=== PATIENT | male | born 1945 | race Caucasian/White ===

== ENCOUNTER 2017-04-14 03:28 | Emergency (ER) | payer OTHER ==
[~2017-04-14] VITALS: Ht 172.7 cm; Wt 63.5 kg
--- NOTE | ~2017-04-14 | EKG ---
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 : 1945 Requested By: Bobby Yeh Order Number: [id number] MD: Primo Rose Measurements Intervals Steward Rate: 71 P: -3 HI: 189 QRS: -19 QRSD: 98 T: 164 QT: 420 QTc: 457 Interpretive Statements Sinus rhythm Borderline left axis deviation Anteroseptal infarct, old Nonspecific repol abnormality, lateral leads Compared to ECG 04/29/2013 15:09:07 Early repolarization now present T-wave abnormality no longer present Possible ischemia no longer present Myocardial infarct finding still present Electronically Signed On 04-14-2017 9:25:50 E COMMERCE DIRECTOR by Primo Rose [email or web address] <ELECTRONICALLY SIGNED> By: Primo Rose MD 04/14/17 0925 0418 0418 Primo Rose MD /EPI
[~2017-04-14 03:28] MED LIST: ASPIRIN EC81 M1 PO; ATRIPLA TABLET1 EACH PO; B-121000 MCG PO; PERCOCET 7.5-31 EACH PO; PRAVACHOL80 MG PO; PYRIDOXINE HCL100 MG PO; TIMOLOL MA0.5 %/5 M2 OPHTHALMIC; VITAMIN E400 UNIT PO; VITAMINC500 PO; XALATAN2.5 ML OPHTHALMIC
[2017-04-14 03:59] LABS: CALCIUM 8.5 mg/dL (8.5-10.1); CREATININE 2.1 mg/dL (0.7-1.3); POTASSIUM 3.8 mmol/L (3.5-5.1)
[2017-04-14 04:00] LABS: MANUAL DIFF NO
[2017-04-14 04:01] LABS: ABSOLUTE NEUTROPHILS 3.6 thou/uL (1.4-8.2); BASOPHILS 0.3 % (0.0-2.0); EOSINOPHILS 2.1 % (0.0-3.0); HEMATOCRIT 24.3 % (42.0-52.0); HEMOGLOBIN 8.3 gm/dL (14.0-18.0); LYMPHOCYTES 26.8 % (24.0-44.0); MCHC 34.2 % (28.0-37.0); MCV 90.5 fL (80.0-100.0); MONOCYTES 8.7 % (1.0-8.0); PLATELET COUNT 171 thou/uL (150-400); POLYS 62.1 % (36.0-66.0); RBC 2.69 mil/uL (4.50-6.00); RDW 14.6 % (10.5-14.5); WBC 5.8 thou/uL (4.0-11.0)
[2017-04-14] MEDS ORDERED: TUMS PO (04:04)
[2017-04-14] MEDS ORDERED: VOLTAREN GEL 1100 G2 (04:06)
[2017-04-14] MEDS ORDERED: COSOPT OCUMETER10 M1 OP (04:07)
[2017-04-14] MEDS ORDERED: FLOMAX0.4 MG PO (04:08)
[2017-04-14] MEDS ORDERED: DIFLUCAN200 MG PO (04:09)
[2017-04-14] MEDS ORDERED: FOLIC ACID1 MG PO (04:10)
[2017-04-14] MEDS ORDERED: LAMIVUDINE PO (04:12)
[2017-04-14] MEDS ORDERED: LIDODERM1 EACH (04:16)
[2017-04-14] MEDS ORDERED: MELATONIN3 MG PO (04:16)
[2017-04-14] MEDS ORDERED: SEROQUEL 25 MG25 M1 PO (04:17)
[2017-04-14] MEDS ORDERED: TIVICAY50 MG PO (04:18)
[2017-04-14] MEDS ORDERED: WELLBUTRIN SR100 MG PO (04:19)
[2017-04-14] MEDS ORDERED: VITAMIN D1000 UNI1 PO (04:19)
[2017-04-14] MEDS ORDERED: ZIDOVUDINE300 MG PO (04:21)
[2017-04-14 04:26] LABS: APTT 28.8 Seconds (24.5-32.8); PROTIME 10.6 Seconds (9.3-11.4)
[2017-04-14 08:34] VITALS: BP 93/55
== END 2017-04-14 09:01 ==
LOC: ER 03:28
PROVIDERS: Emergency Medicine
DX: R06.02 Shortness of breath (principal)

== ENCOUNTER 2017-04-29 18:52 | Inpatient (IN) | payer OTHER ==
[~2017-04-29] VITALS: Ht 182.9 cm; Wt 65.7 kg
[~2017-04-29 18:52] MED LIST changes: +COSOPT OCUMETER10 M1 OP; +DIFLUCAN200 MG PO; +FLOMAX0.4 MG PO; +FOLIC ACID1 MG PO; +LAMIVUDINE PO; +LIDODERM1 EACH; +MELATONIN3 MG PO; +SEROQUEL 25 MG25 M1 PO; +TIVICAY50 MG PO; +TUMS PO; +VITAMIN D1000 UNI1 PO; +VOLTAREN GEL 1100 G2; +WELLBUTRIN SR100 MG PO; +ZIDOVUDINE300 MG PO
[2017-04-29 20:04] VITALS: BP 90/56
[2017-04-29 22:40] VITALS: BP 90/51; BP 99/65
[2017-04-30 01:57] VITALS: BP 96/62
[2017-04-30 04:00] VITALS: BP 96/62; BP 99/63
[2017-04-30 07:24] LABS: HEMATOCRIT 24.4 % (42.0-52.0); HEMOGLOBIN 8.5 gm/dL (14.0-18.0); MCHC 34.9 g/dL (28.0-37.0); MCV 91.5 fL (80.0-100.0); RBC 2.67 mil/uL (4.50-6.00); RDW 14.6 % (10.5-14.5); WBC 3.8 thou/uL (4.0-11.0)
[2017-04-30 07:55] VITALS: BP 109/65
== END 2017-04-30 08:45 | DRG 812 ==
LOC: 3W 18:52
PROVIDERS: Family Medicine
PROC: 30233N1 Transfusion of Nonautologous Red Blood Cells into Peripheral Vein, Percutaneous Approach (ICD-10-PCS; principal; 2017-04-30)
DX: D64.9 Anemia, unspecified (principal); N18.9 Chronic kidney disease, unspecified; Z88.8 Allergy status to other drugs, medicaments and biological substances
CPT/HCPCS: 10779